=== PATIENT | female | born 1965 | race Caucasian/White ===

== ENCOUNTER 2019-09-27 14:26 | Emergency (ER) | payer OTHER ==
[2019-09-27] MEDS ORDERED: HYDROCODONE/APAP 7.5/325 MG TAB ONE (15:10)
[2019-09-27] MEDS ORDERED: HYDROCODONE/APAP 5/325 MG TAB ONE (15:17)
--- NOTE | 2019-09-27 15:43 | RAD REPORT ---
EXAM DESCRIPTION: RAD - Chest Single View - 09/27/2019 3:00 pm CLINICAL HISTORY: left upper chest pain COMPARISON: None TECHNIQUE: AP portable chest image was obtained 09/27/2019 3:00 pm . FINDINGS: Lungs are clear. Heart and vasculature are normal. No measurable pleural effusion and no p neumothorax. Clavicle and left shoulder findings are separately detailed. No acute aortic findings buck spected. IMPRESSION: No acute cardiopulmonary process. Clavicle and left shoulder findings are separately detailed.
--- NOTE | 2019-09-27 15:44 | RAD REPORT ---
EXAM DESCRIPTION: RAD - Shoulder Left 2 View - 09/27/2019 3:00 pm CLINICAL HISTORY: PAIN, fall, shoulder pain COMPARISON: No comparisons TECHNIQUE: Internal and external rotation views of the left shoulder were obtained. FINDINGS: Midshaft left clavicle fracture is present. There is minimal distraction and no overlap of the fracture fragments. There is superior angulation of each component of the fracture. A second obl ique fracture is present through the head of the clavicle at the AC joint. There is 1 full shaft widt h superior displacement of the head of the clavicle. Approximately 8 mm of overlap of the fracture fr agments present as well. No AC joint separation. Acromion and scapula appear intact. No fracture or d islocation of the proximal humerus. No pathologic bone process. Ribs and parenchyma of the upper ches t are intact. IMPRESSION: Midshaft left clavicle fracture and fracture at the head of the clavicle are both presen t and detailed in the body of the report.
--- NOTE | 2019-09-27 15:54 | EDPHYS ---
Physician Documentation [facility] Name: Idalia Salcedo Age: 54 yrs Sex: Female : 1965 Arrival Date: 09/27/2019 Time: 14:28 Bed 14 Private MD: ED Physician Damian Li HPI: 09/26 14:42 This 54 yrs old Female presents to ER via Unassigned with complaints of kb Shoulder Injury. 14:42 The patient or guardian complains of pain, that is acute, tenderness. left shoulder, kb left trapezius and left clavicle. Context: The problem was sustained outdoors, resulted from a fall, The patient experiences decreased range of motion, when attempts to raise arm, The patient reports no obvious deformity. Onset: The symptoms/episode began/occurred just prior to arrival. Modifying factors: the symptoms are alleviated by nothing. The symptoms are aggravated by movement. Associated signs and symptoms: The patient has no apparent associated signs or symptoms. Severity of symptoms: At their worst the symptoms were moderate, in the emergency department the symptoms are unchanged. Treatment prior to arrival includes: no previous treatment. The patient has not experienced similar symptoms in the past. The patient has not recently seen a physician. Pt reports she [place]" [place] the [place] and is having pain to left shoulder/clavicle. Denies LOC, AMS. 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 - Social history:: Smoking status: Patient denies any tobacco usage or history of. ROS: 14:42 Constitutional: Negative for fever, chills, and weight loss, Neck: Negative for injury, kb pain, and swelling, Cardiovascular: Negative for chest pain, palpitations, and edema, Respiratory: Negative for shortness of breath, cough, wheezing, and pleuritic chest pain, Abdomen/GI: Negative for abdominal pain, nausea, vomiting, diarrhea, and constipation, Back: Negative for injury and pain, Skin: Negative for injury, rash, and discoloration, Neuro: Negative for headache, weakness, numbness, tingling, and seizure. 14:42 MS/extremity: Positive for decreased range of motion, pain, of the left clavicle and left trapezius and left shoulder. Exam: 14:42 Constitutional: This is a well developed, well nourished patient who is awake, alert, kb and in no acute distress. Head/Face: Normocephalic, atraumatic. Neck: Trachea midline, no thyromegaly or masses palpated, and no cervical lymphadenopathy. Supple, full range of motion without nuchal rigidity, or vertebral point tenderness. No Meningismus. Chest/axilla: Normal chest wall appearance and motion. Nontender with no deformity. No lesions are appreciated. Cardiovascular: Regular rate and rhythm with a normal S1 and S2. No gallops, murmurs, or rubs. Normal PMI, no JVD. No pulse deficits. Respiratory: Lungs have equal breath sounds bilaterally, clear to auscultation and percussion. No rales, rhonchi or wheezes noted. No increased work of breathing, no retractions or nasal flaring. Abdomen/GI: Soft, non-tender, with normal bowel sounds. No distension or tympany. No guarding or rebound. No evidence of tenderness throughout. Skin: Warm, dry with normal turgor. Normal color with no rashes, no lesions, and no evidence of cellulitis. Neuro: Awake and alert, GCS 15, oriented to person, place, time, and situation. Cranial nerves II-XII grossly intact. Motor strength 5/5 in all extremities. Sensory grossly intact. Cerebellar exam normal. Normal gait. 14:42 Musculoskeletal/extremity: Extremities: grossly normal except: noted in the left clavicle and left trapezius and left shoulder: decreased ROM, pain, ROM: limited active range of motion due to pain, Circulation is intact in all extremities. Sensation intact. Weight bearing: able to fully bear weight. Vital Signs: 14:30 BP 148 / 94; Pulse 89; Resp 17 S; Pulse Ox 100% on R/A; ca1 16:00 BP 136 / 96; Pulse 84; Resp 17 S; Pulse Ox 100% on R/A; Weight 68.04 kg (R); Height 5 ca1 ft. 8 in. (172.72 cm) (R); 16:00 Body Mass Index 22.81 (68.04 kg, 172.72 cm) ca1 MDM: 14:35 Patient medically screened. kb 14:41 Data reviewed: vital signs, nurses notes. Data interpreted: Pulse oximetry: on room air kb is 100 %. Interpretation: normal. Counseling: I had a detailed discussion with the patient and/or guardian regarding: the historical points, exam findings, and any diagnostic results supporting the discharge/admit diagnosis, radiology results, the need for outpatient follow up, a family practitioner, to return to the emergency department if symptoms worsen or persist or if there are any questions or concerns that arise at home. 09/26 14:39 Order name: Chest Single View XRAY; Complete Time: 15:48 kb 09/26 14:39 Order name: Shoulder Left (2 View) XRAY; Complete Time: 15:48 kb 09/26 15:52 Order name: Sling; Complete Time: 15:58 kb Administered Medications: 15:11 Not Given (patient request): [place] (7.5 mg-325 mg) 1 tabs PO once; RASS on ADMIN: kb Combtv4, Very Agttd3, Agttd2, Rstlss1, AlertClm0, Drwsy-1, Lt Sdtn-2, Mod Sdtn-3, Dp Sdtn-4, UnArsble-5 15:14 Drug: [place] 5 mg-325 mg 1 tabs {Note: RASs 0.} Route: PO; ca1 Disposition: 18:12 Co-signature as Attending Physician, Damian Li MD I agree with the assessment and kdr plan of care. Disposition: 09/27/19 15:53 Discharged to Home. Impression: Displaced fracture of left clavicle. - Condition is Stable. - Discharge Instructions: Clavicle Fracture, [id number]. - Prescriptions for Tramadol 50 mg Oral Tablet - take 1 tablet by ORAL route every 8 hours as needed; 12 tablet. - Medication Reconciliation Form, Thank You Letter, Antibiotic Education, Prescription Opioid Use form. - Follow up: Emergency Department; When: As needed; Reason: Worsening of condition. Follow up: Private Physician; When: 2 - 3 days; Reason: Recheck today's complaints, Continuance of care, Re-evaluation by your physician. Signatures: Dispatcher [email or web address] EDMS Cindy Mixon, COMBINE MECHANIC-C COMBINE MECHANIC-Ckb Damian Li MD MD [facility] Gina Gonzalez RN RN ca1 Corrections: (The following items were deleted from the chart) 16:44 15:53 09/27/2019 15:53 Discharged to Home. Impression: Displaced fracture of left ca1 clavicle. Condition is Stable. Forms are Medication Reconciliation Form, Thank You Letter, Antibiotic Education, Prescription Opioid Use. Follow up: Emergency Department; When: As needed; Reason: Worsening of condition. Follow up: Private Physician; When: 2 - 3 days; Reason: Recheck today's complaints, Continuance of care, Re-evaluation by your physician. kb
--- NOTE | 2019-09-27 15:54 | ER ---
Nurse's Notes [facility] Name: Idalia Salcedo Age: 54 yrs Sex: Female : 1965 Arrival Date: 09/27/2019 Time: 14:28 Bed 14 Private MD: Diagnosis: Displaced fracture of left clavicle Presentation: 09/26 14:24 Chief complaint: Patient states: [place] approx 2 [place], fell onto iw left shoulder, hit head but no LOC. Coronavirus screen: Patient denies fever greater than 100.4F, cough, shortness of breath, or difficulty breathing. Proceed with normal triage process. Ebola Screen: Patient negative for fever greater than or equal to 101.5 degrees Fahrenheit, and additional compatible Ebola Virus Disease symptoms Patient denies exposure to infectious person. Patient denies travel to an Ebola-affected area in the 21 days before illness onset. No symptoms or risks identified at this time. 14:24 Method Of Arrival: Ambulatory iw 14:24 Acuity: BARBY 4 iw 14:30 Onset of symptoms was September 27, 2019. ca1 15:00 Initial Sepsis Screen: Does the patient meet any 2 criteria? No. Patient's initial ca1 sepsis screen is negative. Does the patient have a suspected source of infection? No. Patient's initial sepsis screen is negative. 15:00 Risk Assessment: Do you want to hurt yourself or someone else? Patient reports no ca1 desire to harm self or others. Triage Assessment: 16:29 Injury Description:. 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 - Social history:: Smoking status: Patient denies any tobacco usage or history of. Screenin:05 Abuse screen: Denies threats or abuse. Denies injuries from another. Nutritional ca1 screening: No deficits noted. Tuberculosis screening: No symptoms or risk factors identified. Fall Risk Fall in past 12 months (25 points). Assessment: 15:05 General: Appears in no apparent distress. comfortable, Behavior is calm, cooperative, ca1 appropriate for age. Pain: Complains of pain in left clavicle and left trapezius and left shoulder Pain currently is 9 out of 10 on a pain scale. Neuro: Level of Consciousness is awake, alert, obeys commands, Oriented to person, place, time, situation, Appropriate for age. Derm: Skin is intact, is healthy with good turgor, Skin is pink, warm \T\ dry. Musculoskeletal: Circulation, motion, and sensation intact. Capillary refill < 3 seconds, Range of motion: limited in left shoulder. 16:00 Reassessment: Patient appears in no apparent distress at this time. Patient is alert, ca1 oriented x 3, equal unlabored respirations, skin warm/dry/pink. Vital Signs: 14:30 BP 148 / 94; Pulse 89; Resp 17 S; Pulse Ox 100% on R/A; ca1 16:00 BP 136 / 96; Pulse 84; Resp 17 S; Pulse Ox 100% on R/A; Weight 68.04 kg (R); Height 5 ca1 ft. 8 in. (172.72 cm) (R); 16:00 Body Mass Index 22.81 (68.04 kg, 172.72 cm) ca1 ED Course: 14:28 Patient arrived in ED. as 14:35 Cindy Mixon F[facility]-C is [facility]. kb 14:35 Damian Li MD is Attending Physician. kb 14:45 Triage completed. iw 15:00 Gina Gonzalez, RN is Primary Nurse. ca1 15:00 Arm band placed on right wrist. ca1 15:01 Chest Single View XRAY In Process Unspecified. EDMS 15:01 Shoulder Left (2 View) XRAY In Process Unspecified. EDMS 15:05 No provider procedures requiring assistance completed. Patient did not have IV access ca1 during this emergency room visit. 15:05 Patient has correct armband on for positive identification. Bed in low position. Call ca1 light in reach. Side rails up X 1. Pulse ox on. NIBP on. 16:10 Sling applied to left arm. lt1 Administered Medications: 15:11 Not Given (patient request): [place] (7.5 mg-325 mg) 1 tabs PO once; RASS on ADMIN: kb Combtv4, Very Agttd3, Agttd2, Rstlss1, AlertClm0, Drwsy-1, Lt Sdtn-2, Mod Sdtn-3, Dp Sdtn-4, UnArsble-5 15:14 Drug: [place] 5 mg-325 mg 1 tabs {Note: RASs 0.} Route: PO; ca1 Outcome: 15:53 Discharge ordered by MD. mackay 16:29 Discharged to home ambulatory, waiting at the [facility] ca1 16:29 Condition: stable 16:29 Discharge instructions given to patient, Instructed on discharge instructions, follow up and referral plans. medication usage, Demonstrated understanding of instructions, follow-up care, medications, Prescriptions given X 1. 16:44 Patient left the ED. ca1 Signatures: Dispatcher [employer] EDMS Cindy Mixon, HEEL SEAT LASTER-C HEEL SEAT LASTER-Pau Singletary Irene, RN RN Gina Gonzalez RN RN ca1 Bianca, Laisha lt1
[2019-09-27 16:52] VITALS: O2SAT 100
[2019-09-27 16:54] VITALS: BP 136/96
== END 2019-09-27 16:44 | disposition home or self-care (01) ==
LOC: ER 14:26
DX: S42.002A Fracture of unspecified part of left clavicle, initial encounter for closed fracture (principal); W17.89XA Other fall from one level to another, initial encounter; Y93.89 Activity, other specified; Y92.832 Beach as the place of occurrence of the external cause; Z88.0 Allergy status to penicillin; E07.9 Disorder of thyroid, unspecified
CPT/HCPCS: 71045; 99284